=== PATIENT | female | born 1990 | race Asian ===

== ENCOUNTER 2018-05-15 12:01 | Inpatient (IN) | payer OTHER ==
[~2018-05-15] VITALS: Ht 157.5 cm; Wt 65.4 kg
[2018-05-15 12:12] VITALS: BP 109/65
[2018-05-15] MEDS ORDERED: PREN-3 PO (12:18)
[2018-05-15] MEDS ORDERED: OXYTOCIN 30U/ 0.9% NaCL 500ML 500 ML IV SCH (13:56)
[2018-05-15] MEDS ORDERED: LACTATED RINGERS 1,000 ML IV SCH ×2 (13:56→14:00)
[2018-05-15] MEDS ORDERED: OXYTOCIN 30U/ 0.9% NaCL 500ML 500 ML ONE (13:58)
[2018-05-15] MEDS ORDERED: MISOPROSTOL 200 MCG TABLET ONE (13:58)
[2018-05-15] MEDS ORDERED: NEWBORN KIT ONE (13:59)
[2018-05-15] MEDS ORDERED: METOCLOPRAMIDE 5 MG/ML, 2ML ONE (14:00)
[2018-05-15] MEDS ORDERED: LACTATED RINGERS 1,000 ML IVBOLUS ONE (14:00)
[2018-05-15] MEDS ORDERED: SODIUM CITRATE/CITRIC ACID 30 ML UDC ONE (14:00)
[2018-05-15] MEDS ORDERED: SODIUM CITRATE/CITRIC ACID 30 ML UDC PO ONE (14:00)
[2018-05-15] MEDS ORDERED: METOCLOPRAMIDE 5 MG/ML, 2ML IV ONE (14:00)
[2018-05-15] MEDS ORDERED: DEXAMETHASONE 4 MG/ML, 1ML ONE (14:24)
[2018-05-15] MEDS ORDERED: PHENYLEPHRINE 10 MG/ML ONE (14:24)
[2018-05-15] MEDS ORDERED: EPHEDRINE 50 MG/ML, 1ML ONE (14:24)
[2018-05-15] MEDS ORDERED: KETOROLAC 30 MG/1 ML ONE (14:24)
[2018-05-15] MEDS ORDERED: FENTANYL PF 100 MCG/2ML ONE ×2 (14:24→17:44)
[2018-05-15] MEDS ORDERED: OXYTOCIN 10 UNITS/ML, 1ML ONE (14:24)
[2018-05-15] MEDS ORDERED: ONDANSETRON 2MG/ML, 2ML ONE (14:24)
[2018-05-15] MEDS ORDERED: CEFAZOLIN 1,000 MG ONE (14:24)
[2018-05-15 14:27] LABS: BASOPHILS # (AUTO) 0.02 x10^3/uL (0-0.1); BASOPHILS % (AUTO) 0 % (0-1); EOSINOPHILS # (AUTO) 0.09 x10^3/uL (0-0.4); EOSINOPHILS % (AUTO) 1 % (1-7); LYMPHOCYTES # (AUTO) 1.41 x10^3/uL (1-3.4); LYMPHOCYTES % (AUTO) 15 % (22-44); MD NO; MEAN CORPUSCULAR HGB CONC 32.3 g/dL (32.4-35.8); MEAN CORPUSCULAR VOLUME 83.6 fL (80-100); MEAN PLATELET VOLUME 8.2 fL (7.4-10.4); MONOCYTES % (AUTO) 5 % (2-9); NEUTROPHILS # (AUTO) 7.32 x10^3/uL (1.8-6.8); NEUTROPHILS % (AUTO) 78 % (42-75); PLATELET COUNT 243 x10^3/uL (130-400); RED BLOOD COUNT 4.44 x10^6/uL (3.82-5.3); RED CELL DISTRIBUTION WIDTH 16.5 % (9.6-15.2)
[2018-05-15] MEDS ORDERED: METOCLOPRAMIDE 5 MG/ML, 2ML IV PRN (14:30)
[2018-05-15] MEDS ORDERED: EPHEDRINE 50 MG/ML, 1ML IVPush PRN (14:30)
[2018-05-15] MEDS ORDERED: MEPERIDINE/PF 25MG/0.5ML IVPush PRN (14:30)
[2018-05-15] MEDS ORDERED: HYDROmorphone 1 MG/ML, 1ML IV PRN (14:30)
[2018-05-15] MEDS ORDERED: ONDANSETRON 2MG/ML, 2ML IVPush PRN (14:30)
[2018-05-15] MEDS ORDERED: MIDAZOLAM 1 MG/ML, 2ML IV PRN (14:30)
[2018-05-15] MEDS ORDERED: HYDROcodone/APAP 7.5-325MG/15ML UDC PO PRN (14:30)
[2018-05-15] MEDS ORDERED: FENTANYL PF 100 MCG/2ML IV PRN (14:30)
[2018-05-15] MEDS ORDERED: LABETALOL 5MG/ML, 20ML IV PRN (14:30)
[2018-05-15] MEDS ORDERED: hydrALAzine 20 MG/ML, 1ML IV PRN (14:30)
[2018-05-15] MEDS ORDERED: PROMETHAZINE 25 MG/ML, 1ML IV PRN (14:30)
[2018-05-15] MEDS ORDERED: OXYcodone 5 MG/5 ML ORAL.SOL UDC PO PRN (14:30)
[2018-05-15] MEDS ORDERED: ALBUTEROL SULFATE 2.5 MG/3 ML NPPB PRN (14:30)
[2018-05-15] MEDS: OXYTOCIN 30U/ 0.9% NaCL 500ML 500 ML IV SCH (16:52)
[2018-05-15] MEDS: LACTATED RINGERS 1,000 ML IV SCH ×2 (16:52→17:25)
[2018-05-15] MEDS ORDERED: CALCIUM CARBONATE 500 MG TAB.CHEW PO PRN (17:00)
[2018-05-15] MEDS ORDERED: ONDANSETRON 2MG/ML, 2ML IV PRN (17:00)
[2018-05-15] MEDS ORDERED: morphine SULFATE 10 MG/ML, 1ML IVPush PRN ×2 (17:00)
[2018-05-15] MEDS ORDERED: ACETAMINOPHEN 325 MG TABLET PO PRN (17:00)
[2018-05-15] MEDS ORDERED: METHYLERGONOVINE 0.2 MG/ML IM PRN (17:00)
[2018-05-15] MEDS ORDERED: CARBOPROST TROMETHAMINE 250 MCG/ML, 1ML IM PRN (17:00)
[2018-05-15] MEDS ORDERED: MISOPROSTOL 200 MCG TABLET PR PRN (17:00)
[2018-05-15] MEDS ORDERED: OXYcodone 5 MG/5 ML ORAL.SOL UDC ONE (17:46)
[2018-05-15 18:25] VITALS: BP 98/51
[2018-05-15] MEDS: OXYcodone/APAP 5/325MG TABLET PO PRN ×2 (18:53→23:46)
[2018-05-15 19:30] VITALS: BP 108/66
[2018-05-16 00:30] VITALS: BP 102/59
[2018-05-16] MEDS: LACTATED RINGERS 1,000 ML IV SCH ×3 (00:52→22:52)
[2018-05-16] MEDS: OXYTOCIN 30U/ 0.9% NaCL 500ML 500 ML IV SCH ×2 (02:52→22:52)
[2018-05-16 03:30] VITALS: BP 107/64
[2018-05-16] MEDS: OXYcodone/APAP 5/325MG TABLET PO PRN ×4 (04:07→16:16)
[2018-05-16 06:02] LABS: BASOPHILS # (AUTO) 0.02 x10^3/uL (0-0.1); BASOPHILS % (AUTO) 0 % (0-1); EOSINOPHILS # (AUTO) 0.04 x10^3/uL (0-0.4); EOSINOPHILS % (AUTO) 0 % (1-7); LYMPHOCYTES # (AUTO) 1.57 x10^3/uL (1-3.4); LYMPHOCYTES % (AUTO) 12 % (22-44); MD NO; MEAN CORPUSCULAR HEMOGLOBIN 27.7 pg (27.0-34.8); MEAN PLATELET VOLUME 8.4 fL (7.4-10.4); MONOCYTES # (AUTO) 0.69 x10^3/uL (0.2-0.8); MONOCYTES % (AUTO) 5 % (2-9); NEUTROPHILS # (AUTO) 10.47 x10^3/uL (1.8-6.8); NEUTROPHILS % (AUTO) 82 % (42-75); PLATELET COUNT 209 x10^3/uL (130-400); RED BLOOD COUNT 3.85 x10^6/uL (3.82-5.3); RED CELL DISTRIBUTION WIDTH 16.2 % (9.6-15.2)
[2018-05-16 07:00] VITALS: BP 90/55
[2018-05-16] MEDS: DOCUSATE 100 MG CAPSULE PO PRN ×2 (08:13→21:01)
[2018-05-16] MEDS: PRENATAL VIT/IRON/FA 1 EACH TABLET PO SCH (08:13)
[2018-05-16 12:17] VITALS: BP 100/69
[2018-05-16 16:20] VITALS: BP 102/62
[2018-05-16 19:10] VITALS: BP 102/64
[2018-05-16] MEDS: IBUPROFEN 600 MG TABLET PO PRN (21:01)
[2018-05-17] MEDS: LACTATED RINGERS 1,000 ML IV SCH ×3 (00:09→08:52)
[2018-05-17] MEDS: SIMETHICONE 80 MG CHEW TAB PO PRN ×2 (03:28→08:47)
[2018-05-17] MEDS: IBUPROFEN 600 MG TABLET PO PRN ×2 (03:28→08:47)
[2018-05-17 08:01] VITALS: BP 114/75
[2018-05-17] MEDS: DOCUSATE 100 MG CAPSULE PO PRN (08:47)
[2018-05-17] MEDS: OXYTOCIN 30U/ 0.9% NaCL 500ML 500 ML IV SCH (08:52)
[2018-05-17] MEDS ORDERED: IBUP-1222 PO (08:58)
[2018-05-17] MEDS ORDERED: OXYC-302 PO (08:58)
[2018-05-17] MEDS: PRENATAL VIT/IRON/FA 1 EACH TABLET PO SCH (09:00)
== END 2018-05-17 11:43 | disposition home or self-care (01) | DRG 766 ==
LOC: LDOP 12:01 → LDIP 14:03 → 2NW 18:05
PROVIDERS: ADMIT Obstetrics & Gynecology; ATTEND Obstetrics & Gynecology
PROC: 10D00Z1 Extraction of Products of Conception, Low, Open Approach (ICD-10-PCS; principal; 2018-05-15)
DX: O24.420 Gestational diabetes mellitus in childbirth, diet controlled (principal); O99.824 Streptococcus B carrier state complicating childbirth; Z37.0 Single live birth; Z3A.37 37 weeks gestation of pregnancy
CPT/HCPCS: 36415; 82962; 85025; 86850; 86900; 89060; G0378; J0690; J1100; J1885; J2405; J3010; J2370; J2590; J2765; J7120; Q0114